=== PATIENT | female | born 1945 | race Hispanic/Latino ===

== ENCOUNTER 2020-02-14 19:59 | Emergency (ER) | payer OTHER ==
[~2020-02-14 19:59] MED LIST: AMLO10TA7 PO; CLON0.1T PO; CLON0.5T23 PO; CLON1PAT13 TD; FAMO40TA7 PO; GLIPIZIDE PO; LOSARTAN PO; METO50TA18 PO
[2020-02-14] MEDS ORDERED: CEFTRIAXONE SODIUM 1 GM IVP ONE ×2 (20:00)
[2020-02-14 20:58] LABS: BASOPHILS % (AUTO) 0.3 % (0.0-5.0); EOSINOPHILS % (AUTO) 0.3 % (0.0-8.0); HEMATOCRIT 34.6 % (36-48); LYMPHOCYTES % (AUTO) 9.1 % (21.0-51.0); MEAN CORPUSCULAR HEMOGLOBIN 19.4 pg (27.0-33.0); MEAN CORPUSCULAR HGB CONC 30.9 g/dL (32.0-36.0); MEAN CORPUSCULAR VOLUME 62.8 fL (79-99); MONOCYTES % (AUTO) 6.2 % (3.0-13.0); NEUTROPHILS % (AUTO) 83.7 % (40.0-77.0); PLATELET COUNT (AUTO) 287 K/uL (130-400); RED BLOOD CELL COUNT(AUTO) 5.51 MIL/uL (4.00-5.50); RED CELL DISTRIBUTION WIDTH 15.8 % (11.0-15.5); WHITE BLOOD COUNT (AUTO) 11.7 K/uL (4.8-10.8)
[2020-02-14 21:12] LABS: CREATININE 0.9 mg/dL (0.5-1.5); POTASSIUM 3.6 mmol/L (3.5-5.1)
[2020-02-14 21:13] LABS: INR 0.89 (0.85-1.15); PARTIAL THROMBOPLASTIN TIME 29.7 SEC (26.3-35.5); PROTHROMBIN TIME 9.7 SEC (9.6-11.6)
[2020-02-14 21:16] LABS: ALBUMIN 3.5 g/dL (3.5-5.0); BILIRUBIN,TOTAL 0.7 mg/dL (0.2-1.0); TOTAL PROTEIN, SERUM 6.7 g/dL (6.0-8.3)
[2020-02-14 21:22] LABS: B-TYPE NATRIURETIC PEPTIDE 55 pg/mL (0-100)
[2020-02-14 22:38] LABS: BILIRUBIN,URINE Negative (NEGATIVE); COLOR,URINE Yellow (YELLOW); GLUCOSE, URINE (UA) Negative (NEGATIVE); KETONES,URINE Negative (NEGATIVE); LEUKOCYTE ESTERASE ,URINE Moderate (NEGATIVE); NITRATE,URINE Positive (NEGATIVE); OCCULT BLOOD,URINE Negative (NEGATIVE); PROTEIN,URINE Negative (NEGATIVE)
[2020-02-14 22:39] LABS: APPEARANCE,URINE SLIGHTLY CLOUDY (CLEAR)
[2020-02-14 23:02] LABS: BACTERIA,URINE Many /HPF (None Seen); RBC,URINE 0-1 /HPF (0-1)
[2020-02-18] MEDS ORDERED: METO-408 PO (10:22)
[2020-02-18] MEDS ORDERED: CLON0.252 PO (10:22)
[2020-02-18] MEDS ORDERED: ASPI-1012 PO (10:22)
[2020-02-18] MEDS ORDERED: METF-446 PO (10:22)
[2020-02-18] MEDS ORDERED: FAMO-136 PO (10:22)
[2020-02-18] MEDS ORDERED: HYDR-4153 PO (10:22)
[2020-02-18] MEDS ORDERED: ATOR40TA69 PO (10:22)
[2020-02-18] MEDS ORDERED: FLUO20CA30 PO (10:22)
[2020-02-18] MEDS ORDERED: CLOP75TA14 PO (10:22)
[2020-02-18] MEDS ORDERED: LOSA50TA64 PO (10:22)
[2020-02-18] MEDS ORDERED: GLIP10TA3 PO (10:22)
[2020-02-18] MEDS ORDERED: ACET-2247 PO (10:27)
== END 2020-02-15 01:22 | disposition home or self-care (01) ==
LOC: EDH 19:59
DX: N39.0 Urinary tract infection, site not specified (principal); E11.65 Type 2 diabetes mellitus with hyperglycemia; I10 Essential (primary) hypertension; Z20.828 Contact with and (suspected) exposure to other viral communicable diseases; Z88.2 Allergy status to sulfonamides; Z86.73 Personal history of transient ischemic attack (TIA), and cerebral infarction without residual deficits
CPT/HCPCS: 36415; 71045; 80053; 81001; 82550; 83880; 84484; 85025; 85610; 85730; 87077; 87088; 87186; 87426; 93005; 96374; 99285; J0696; U0003